=== PATIENT | female | born 2005 | race Caucasian/White ===

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

== ENCOUNTER 2025-05-27 15:08 | Emergency (ER) | payer MEDICAID, OTHER ==
[2025-05-27 15:55] LABS: APPEARANCE,URINE SLT CLOUDY (Clear); GLUCOSE,URINE NEGATIVE (Negative); OCCULT BLOOD,URINE TRACE-INTACT (Negative)
[2025-05-27 16:01] LABS: SQUAMOUS EPITHELIAL CELLS,UR 0-5 /hpf (0-5); WBC CLUMPS,URINE FEW /hpf (NOT SEEN)
[2025-05-27 17:06] VITALS: BP 146/115; PULSE 94
== END 2025-05-27 16:55 | disposition home or self-care (01) ==
LOC: JD.ED 15:08
DX: N30.01 Acute cystitis with hematuria (principal)
CPT/HCPCS: 81001; 87086; 87428; 99284; A9270; 87088; 87186; 99283

== ENCOUNTER 2025-08-13 10:53 | Emergency (ER) | payer SELFPAY ==
[2025-08-13] MEDS ORDERED: Sodium Chloride 0.9% 10 ML Syringe FLUSH PRN (11:13)
[2025-08-13 12:04] LABS: BASOPHILS ABSOLUTE AUTO 0.0 K/mm3 (0.0-0.3); BASOPHILS PERCENT AUTO 0.2 % (0.0-1.0); EOSINOPHILS ABSOLUTE AUTO 0.2 K/mm3 (0.0-0.7); EOSINOPHILS PERCENT AUTO 1.5 % (0.0-5.0); IMMATURE GRAN ABSOLUTE AUTO 0.04 K/mm3 (0.00-0.05); IMMATURE GRAN PERCENT AUTO 0.3 % (0.0-0.4); LYMPHOCYTES ABSOLUTE AUTO 2.1 K/mm3 (2.0-8.8); LYMPHOCYTES PERCENT AUTO 16.5 % (50.0-65.0); MEAN PLATELET VOLUME 11.4 fl (9.4-12.3); MONOCYTES ABSOLUTE AUTO 0.8 K/mm3 (0.1-1.4); MONOCYTES PERCENT AUTO 6.8 % (2.0-10.0); NEUTROPHILS ABSOLUTE AUTO 9.3 K/mm3 (1.5-8.5); NEUTROPHILS PERCENT AUTO 74.7 % (35.0-45.0); NRBC ABSOLUTE 0.00 (0.00-0.03); NRBC PERCENT 0.0 % (0.0-0.2); PLATELET COUNT,PLT 204 K/mm3 (150-400); RED BLOOD CELL COUNT 5.06 M/mm3 (4.10-5.30); WHITE BLOOD CELL COUNT,WBC 12.43 K/mm3 (4.5-13.5)
[2025-08-13 12:10] LABS: APPEARANCE,URINE TURBID (Clear); GLUCOSE,URINE NEGATIVE (Negative); OCCULT BLOOD,URINE 1+ (Negative)
[2025-08-13 12:27] LABS: SQUAMOUS EPITHELIAL CELLS,UR 30-40 /hpf (0-5)
[2025-08-13 12:30] LABS: A/G RATIO 0.9 (1-2); ALANINE AMINOTRANSFERASE,ALT 19.0 U/L (14-59); ASPARTATE AMNIOTRANSFERASE,AST 17.0 U/L (15-37); BILIRUBIN TOTAL 0.4 mg/dL (0.2-1.0); BLOOD UREA NITROGEN,BUN 8.0 mg/dL (7-18); CARBON DIOXIDE,CO2 24.0 mEq/L (21-32); CHLORIDE,CL 104.0 mEq/L (98-107); CREATININE 0.7 mg/dL (0.55-1.02); EST CRCL DRUG DOSING (CG) 111.62 mL/min; ESTIMATED GFR 128.0 mL/min (>60); GLUCOSE RANDOM 92.0 mg/dL (70-99); POTASSIUM,K 3.7 mEq/L (3.5-5.1); PROTEIN TOTAL,TP 8.1 g/dl (6.4-8.2); SODIUM,NA 141.0 mEq/L (136-145)
[2025-08-13] MEDS: cefTRIAXone 1 GM in Water For Injection, Sterile 10 ML IVPUSH ONE (13:29)
[2025-08-13 13:31] VITALS: BP 135/87; PULSE 108
== END 2025-08-13 13:35 | disposition home or self-care (01) ==
LOC: JD.ED 10:53
DX: J18.9 Pneumonia, unspecified organism (principal); Z79.899 Other long term (current) drug therapy
CPT/HCPCS: 36415; 71045; 80053; 81001; 81025; 83735; 85025; 87428; 96361; 96374; 99283; J0696; J7030; Q0144; 99284; A9270-GY

== ENCOUNTER 2025-09-03 13:09 | Emergency (ER) | payer SELFPAY ==
[2025-09-03] MEDS ORDERED: Sodium Chloride 0.9% 10 ML Syringe FLUSH PRN (14:03)
[2025-09-03 14:18] LABS: BASOPHILS ABSOLUTE AUTO 0.0 K/mm3 (0.0-0.3); BASOPHILS PERCENT AUTO 0.5 % (0.0-1.0); EOSINOPHILS ABSOLUTE AUTO 0.1 K/mm3 (0.0-0.7); EOSINOPHILS PERCENT AUTO 0.9 % (0.0-5.0); IMMATURE GRAN ABSOLUTE AUTO 0.02 K/mm3 (0.00-0.05); IMMATURE GRAN PERCENT AUTO 0.2 % (0.0-0.4); LYMPHOCYTES ABSOLUTE AUTO 2.6 K/mm3 (2.0-8.8); LYMPHOCYTES PERCENT AUTO 31.7 % (50.0-65.0); MEAN PLATELET VOLUME 11.8 fl (9.4-12.3); MONOCYTES ABSOLUTE AUTO 0.7 K/mm3 (0.1-1.4); MONOCYTES PERCENT AUTO 9.2 % (2.0-10.0); NEUTROPHILS ABSOLUTE AUTO 4.6 K/mm3 (1.5-8.5); NEUTROPHILS PERCENT AUTO 57.5 % (35.0-45.0); NRBC ABSOLUTE 0.00 (0.00-0.03); NRBC PERCENT 0.0 % (0.0-0.2); PLATELET COUNT,PLT 249 K/mm3 (150-400); RED BLOOD CELL COUNT 5.11 M/mm3 (4.10-5.30); WHITE BLOOD CELL COUNT,WBC 8.05 K/mm3 (4.5-13.5)
[2025-09-03 14:30] LABS: APPEARANCE,URINE CLEAR (Clear); GLUCOSE,URINE NEGATIVE (Negative); OCCULT BLOOD,URINE NEGATIVE (Negative)
[2025-09-03 14:32] LABS: A/G RATIO 1.0 (1-2); ALANINE AMINOTRANSFERASE,ALT 24 U/L (14-59); ASPARTATE AMNIOTRANSFERASE,AST 19 U/L (15-37); BILIRUBIN TOTAL 0.5 mg/dL (0.2-1.0); BLOOD UREA NITROGEN,BUN 10 mg/dL (7-18); CARBON DIOXIDE,CO2 26 mEq/L (21-32); CHLORIDE,CL 104 mEq/L (98-107); CREATININE 0.8 mg/dL (0.55-1.02); EST CRCL DRUG DOSING (CG) 93.56 mL/min; ESTIMATED GFR 109 mL/min (>60); GLUCOSE RANDOM 86 mg/dL (70-99); POTASSIUM,K 3.6 mEq/L (3.5-5.1); PROTEIN TOTAL,TP 8.2 g/dl (6.4-8.2); SODIUM,NA 141 mEq/L (136-145)
[2025-09-03 14:37] LABS: ETHANOL BLOOD MEDICAL 0.00 gm% (0.00); TROPONIN I HIGH SENSITIVITY < 4 pg/mL (<=51)
[2025-09-03 14:38] LABS: BUPRENORPHINE SCREEN,URINE NEGATIVE (CUTOFF=10); METHADONE SCREEN, URINE NEGATIVE (CUTOFF=200); METHAMPHETAMINES SCREEN, URINE NEGATIVE (CUTOFF=500); OXYCODONE SCREEN,URINE NEGATIVE (CUT0FF=100); THC SCREEN,URINE 20 NG/ML PRESUMPTIVE POSITIVE (CUTOFF=50)
[2025-09-03 14:55] LABS: AMPHETAMINES SCREEN, URINE NEGATIVE (CUTOFF=500)
[2025-09-03] MEDS: Ondansetron 4 MG Tab.DIS PO ONE (15:15)
[2025-09-03 16:26] VITALS: BP 158/138; PULSE 88
== END 2025-09-03 16:26 | disposition home or self-care (01) ==
LOC: JD.ED 13:09
DX: R11.2 Nausea with vomiting, unspecified (principal); R07.9 Chest pain, unspecified; R51.9 Headache, unspecified; Z87.891 Personal history of nicotine dependence; Z79.899 Other long term (current) drug therapy; Z91.030 Bee allergy status; Z91.018 Allergy to other foods
CPT/HCPCS: 36415; 71045; 80053; 80306; 80307; 81003; 83690; 83735; 84484; 84703; 85025; 87428; 93005; 99285; A9270; 93010; 99283